=== PATIENT | female | born 1990 | race Caucasian/White ===

== ENCOUNTER 2016-10-24 22:11 | Emergency (ER) | payer OTHER ==
[2016-10-24] MEDS ORDERED: CEPHALEXIN 250 MG CAPSULE PO STA (22:50)
[2016-10-24] MEDS ORDERED: PHENAZOPYRIDINE 100 MG TABLET PO STA (22:50)
[2016-10-24] MEDS ORDERED: PHENAZOPYRIDINE 100 MG TABLET PO ONE (23:00)
[2016-10-24] MEDS ORDERED: CEPHALEXIN 250 MG CAPSULE PO ONE (23:00)
== END 2016-10-24 23:09 | disposition home or self-care (01) ==
DX: N39.0 Urinary tract infection, site not specified (principal); Z87.19 Personal history of other diseases of the digestive system
CPT/HCPCS: 81001; 81025; 87077; 87086; 87181; 99283; A9270

== ENCOUNTER 2016-12-11 13:52 | Emergency (ER) | payer OTHER | END 2016-12-11 17:29 | disposition home or self-care (01) | DX: O03.9 Complete or unspecified spontaneous abortion without complication (principal) ==

== ENCOUNTER 2016-12-22 12:13 | Outpatient (CLI) | payer OTHER | END 2016-12-22 12:14 | disposition home or self-care (01) | DX: M94.261 Chondromalacia, right knee (principal) ==

== ENCOUNTER 2019-04-19 18:53 | Outpatient (CLI) | payer OTHER ==
--- NOTE | 2019-04-20 01:26 | Ultrasound Report ---
Reason: TEST POSITIVE Procedure Date: 04/19/2019 Accession Number: [id number] / [id number] Procedure: US - OB First Trimester CPT Code: FULL RESULT: EXAM: FIRST TRIMESTER OBSTETRIC ULTRASOUND (Less than 11 weeks) EXAM DATE: 04/19/2019 07:03 PM. CLINICAL HISTORY: TEST POSITIVE. LMP: 02/13/2019. COMPARISONS: None. TECHNIQUE: Transabdominal and transvaginal ultrasound examination with static image documentation. CLINICAL DATES: EGA 9 weeks 2 days with STEVEN 11/20/2019 based on LMP. ASSESSMENT: Gestational Sac: Single intrauterine. Mean gestational sac diameter: 40 mm = 9 weeks 3 days. Embryo: CRL (crown-rump length) 23 mm = 9 weeks 0 days. Cardiac activity: 184 beats per minute. Yolk sac: 5 mm. Amniotic fluid: Not accurately assessed at this gestational age. Early placenta: Not visible at this gestational age. Other: No perigestational fluid collection demonstrated. MATERNAL STRUCTURES: Uterus: Anteverted. Unremarkable. Cervix: Closed. Right Ovary/Adnexa: The ovary measures 2.7 x 2.0 x 1.8 cm, volume 5.3 cc. Unremarkable. Left Ovary/Adnexa: The ovary measures 2.9 x 1.8 x 2.3 cm, volume 6.1 cc. Unremarkable. Free Fluid: None. Other: None. IMPRESSION: 1. Single viable intrauterine at EGA 9 weeks 0 days with STEVEN 11/22/2019 based on crown-rump length, which is concordant with clinical dates. 2. Assigned dating is STEVEN 11/20/2019 based on LMP. DEBBIE
== END 2019-04-19 18:54 | disposition home or self-care (01) ==
LOC: DI 18:53
PROVIDERS: ATTEND Obstetrics & Gynecology
DX: Z32.01 Encounter for pregnancy test, result positive (principal)
CPT/HCPCS: 76801; 76817

== ENCOUNTER 2019-04-21 14:05 | Outpatient (CLI) | payer OTHER ==
[2019-04-21 17:46] LABS: MUDS CUTOFF CONCENTRATIONS CUTOFF CONC BELOW:
[2019-04-21 18:34] LABS: BILIRUBIN,URINE NEGATIVE (NEGATIVE); GLUCOSE, URINE (UA) NEGATIVE (NEGATIVE); KETONES,URINE (UA) NEGATIVE (NEGATIVE); LEUKOCYTE ESTERASE, URINE NEGATIVE (NEGATIVE); NITRITE,URINE NEGATIVE (NEGATIVE); OCCULT BLOOD,URINE NEGATIVE (NEGATIVE); PH,URINE 6.5 PH (5.0-7.5); PROTEIN,URINE NEGATIVE (NEGATIVE); UROBILINOGEN,URINE 0.2 (NORMAL) E.U./dL (NORMAL)
[2019-04-21 18:51] LABS: BACTERIA,URINE None Seen /HPF (None Seen); CLARITY,URINE CLEAR (CLEAR); RBC,URINE None Seen /HPF (0-5); SQUAMOUS EPITHELIAL CELL,UR MOD Squamous (<= Few)
[2019-04-21 18:52] LABS: AMPHETAMINE SCREEN,URINE NEGATIVE (NEGATIVE); BENZODIAZEPINES SCREEN, URINE NEGATIVE (NEGATIVE); COCAINE SCREEN URINE NEGATIVE (NEGATIVE); METHADONE SCREEN, URINE NEGATIVE (NEGATIVE); METHAMPHETAMINES SCREEN, URINE NEGATIVE (NEGATIVE); OPIATE SCREEN, URINE NEGATIVE (NEGATIVE); OXYCODONE SCREEN, URINE NEGATIVE (NEGATIVE); PROPOXYPHENE SCREEN, URINE NEGATIVE (NEGATIVE); TRICYCLIC ANTIDEPRESSANT,URINE NEGATIVE (NEGATIVE)
[2019-04-21 22:46] LABS: TRICHOMONAS VAGINALIS DNA NEGATIVE (NEGATIVE)
== END 2019-04-21 23:59 | disposition home or self-care (01) ==
LOC: LAB.R 14:05
PROVIDERS: ATTEND Obstetrics & Gynecology
DX: Z36.89 Encounter for other specified antenatal screening (principal); Z12.4 Encounter for screening for malignant neoplasm of cervix; O09.91 Supervision of high risk pregnancy, unspecified, first trimester
CPT/HCPCS: 80306; 81001; 87086; 87491; 87591; 87661

== ENCOUNTER 2019-04-21 14:16 | Outpatient (CLI) | payer OTHER ==
[2019-04-21 14:47] LABS: BASOPHILS % (AUTO) 0.3 %; EOSINOPHILS # (AUTO) 0.1 10^3/uL (0.0-0.7); EOSINOPHILS % (AUTO) 1.3 %; HGB - HEMOGLOBIN 13.5 g/dL (12.0-16.0); LYMPHOCYTES # (AUTO) 1.9 10^3/uL (1.5-3.5); LYMPHOCYTES % (AUTO) 19.6 %; MEAN CORPUSCULAR HGB CONC 33.4 g/dL (32.0-36.0); MEAN CORPUSCULAR VOLUME 92.7 fL (81.0-99.0); MONOCYTES # (AUTO) 0.7 10^3/uL (0.0-1.0); MONOCYTES % (AUTO) 7.5 %; NEUTROPHILS # (AUTO) 6.7 10^3/uL (1.5-6.6); NEUTROPHILS % (AUTO) 70.9 %; PLT - PLATELET COUNT 253 10^3/uL (130-450); RED BLOOD COUNT 4.36 10^6/uL (4.20-5.40); RED CELL DISTRIBUTION WIDTH 12.3 % (12.0-15.0); WHITE BLOOD COUNT 9.4 x10^3/uL (4.8-10.8)
[2019-04-21 15:02] LABS: VBG PH 7.336 (7.31-7.41)
[2019-04-21 15:10] LABS: ALBUMIN/GLOBULIN RATIO 1.3 (1.0-2.2); BILIRUBIN,TOTAL 0.6 mg/dL (0.2-1.0); CALCIUM 9.2 mg/dL (8.5-10.3); CREATININE 0.6 mg/dL (0.4-1.0); TOTAL PROTEIN 7.2 g/dL (6.7-8.2)
[2019-04-21 15:25] LABS: FERRITIN 34.1 ng/mL (11.0-306.8)
[2019-04-22 11:37] LABS: HIV AG/AB 4TH GEN NON-REACTIVE (NON-REACTIVE)
[2019-04-22 12:41] LABS: HEPATITIS B SURFACE ANTIGEN NON-REACTIVE (NON-REACTIVE); HEPATITIS C ANTIBODY NON-REACTIVE (NON-REACTIVE)
== END 2019-04-21 14:17 | disposition home or self-care (01) ==
LOC: LAB 14:16
PROVIDERS: ATTEND Obstetrics & Gynecology
DX: Z36.89 Encounter for other specified antenatal screening (principal); O09.91 Supervision of high risk pregnancy, unspecified, first trimester; O99.619 Diseases of the digestive system complicating pregnancy, unspecified trimester; K90.0 Celiac disease; Z12.4 Encounter for screening for malignant neoplasm of cervix
CPT/HCPCS: 36415; 80053; 80306; 81001; 81599; 82306; 82330; 82607; 82728; 83540; 84466; 85025; 86592; 86762; 86803; 86850; 86900; 86901; 87340; 87389; 87491; 87591; 87661

== ENCOUNTER 2019-07-03 13:00 | Outpatient (CLI) | payer OTHER ==
--- NOTE | 2019-07-04 17:46 | Ultrasound Report ---
Reason: SCREENING ,OTHER SPECIFIED Procedure Date: 07/03/2019 Accession Number: [id number] / [id number] Procedure: US - OB Detailed Eval CPT Code: FULL RESULT: EXAM: COMPLETE OBSTETRICAL ULTRASOUND EXAM DATE: 07/03/2019 01:21 PM. CLINICAL HISTORY: anatomic survey. COMPARISON: OB FIRST TRIMESTER 04/19/2019 7:03 PM. TECHNIQUE: Real-time sonographic evaluation of the fetus performed by the supervisor data processing. Multiple software support representative static images were saved for review. DATING: Established EGA 19 weeks 5 days with STEVEN 11/22/2019 based on first ultrasound and physician stated. EGA 20 weeks 0 days with STEVEN 11/20/2019 based on LMP. EGA 20 weeks 0 days with STEVEN 11/20/2019 based on the current ultrasound. GENERAL EVALUATION [place] . Cardiac activity: 149 bpm. movement: Present Presentation: Variable Placenta: Posterior position. No evidence for previa. Umbilical cord: 3 vessel cord. Central placental cord origin. Amniotic fluid: Subjectively normal. MVP 4.5 cm. BIOMETRY Bi-Parietal Diameter (BPD): 4.6 cm, 20 weeks 0 days Head Circumference (HC): 16.8 cm, 19 weeks 3 days Abdominal Circumference (AC): 14.8 cm, 20 weeks 1 day Femur Length (FL): 3.3 cm, 20 weeks 3 days Estimated Weight: 334 g. ANATOMY The intracranial structures, face/nose/lips, spine, stomach, abdominal wall and cord insertion, diaphragm, kidneys, bladder, and extremities were visualized and demonstrate no abnormality. The profile/nasal bone, cardiac anatomy and outflow tracts are not well seen today. Suggest follow-up ultrasound in 2 weeks. MATERNAL STRUCTURES Uterus: Unremarkable. Cervix: Long and closed. Transabdominal length 4.6 cm. Right ovary/adnexa: Unremarkable. Left ovary/adnexa: Unremarkable. Free fluid: None. IMPRESSION: 1. Bay intrauterine with gestational age 19 weeks 5 days based on first ultrasound and physician stated. 2. Estimated weight is within expected limits for assigned dating. 3. The heart, outflow tracts, and profile are not seen today. Suggest follow-up ultrasound in 2-3 weeks. Otherwise normal anatomic survey. RADIA
== END 2019-07-03 13:01 | disposition home or self-care (01) ==
LOC: DI 13:00
PROVIDERS: ATTEND Obstetrics & Gynecology
DX: Z36.89 Encounter for other specified antenatal screening (principal)
CPT/HCPCS: 76811

== ENCOUNTER 2019-07-20 14:51 | Outpatient (CLI) | payer OTHER ==
--- NOTE | 2019-07-21 09:08 | Ultrasound Report ---
Reason: INCOMPLETE FAS, SUPER OF NORMAL Procedure Date: 07/20/2019 Accession Number: [id number] / [id number] Procedure: US - OB F/U or Repeat CPT Code: FULL RESULT: EXAM: FOLLOW-UP OBSTETRICAL ULTRASOUND EXAM DATE: 07/20/2019 04:17 PM. CLINICAL HISTORY: Incomplete survey on prior examination. COMPARISON: 07/03/2019. TECHNIQUE: Real-time sonographic evaluation of the fetus performed by the courier driver. Transabdominal imaging only. Multiple lead generation representative static images were saved for review. DATING: Established EGA 22 weeks 3 days with STEVEN 11/20/2019 based on LMP. EGA 22 weeks 1 day with STEVEN 11/22/2019 based on prior ultrasound. EGA 22 weeks 1 day with STEVEN 11/22/2019 based on physician provided. GENERAL EVALUATION [place] . Cardiac activity: 144 bpm. movement: Visualized. Presentation: Cephalic. Placenta: Posterior position. Amniotic fluid: Normal. BIOMETRY: Not repeated. Performed on 07/03/2019. ANATOMY Previously incomplete anatomy was completed today. The profile/nasal bone was again not seen because the face was down for the entire examination. RVOT and LVOT are visualized and are unremarkable. MATERNAL STRUCTURES Cervical canal length 3.9 cm. IMPRESSION: 1. Bay live intrauterine with gestational age 22 weeks 1 day based on previous ultrasound. 2. Incomplete elements of the anatomic evaluation were evaluated. The facial structures are again not visualized because the face was down. RVOT and LVOT are present and are unremarkable. 3. If clinically appropriate, consider follow-up examination.
== END 2019-07-20 14:52 | disposition home or self-care (01) ==
LOC: DI 14:51
PROVIDERS: ATTEND Obstetrics & Gynecology
DX: Z34.02 Encounter for supervision of normal first pregnancy, second trimester (principal)
CPT/HCPCS: 76816

== ENCOUNTER 2019-08-21 14:03 | Outpatient (CLI) | payer OTHER ==
--- NOTE | 2019-08-24 08:34 | Ultrasound Report ---
Reason: SUPER OF NORMAL 1ST , F/U TO FAS Procedure Date: 08/21/2019 Accession Number: [id number] / [id number] Procedure: US - OB F/U or Repeat CPT Code: Final Report FULL RESULT: EXAM: FOLLOW-UP OBSTETRICAL ULTRASOUND EXAM DATE: 08/21/2019 03:19 PM. CLINICAL HISTORY: SUPER OF NORMAL 1ST , F/U TO FAS. COMPARISON: None. TECHNIQUE: Real-time sonographic evaluation of the fetus performed by the architectural practice manager. Multiple business process representative static images were saved for review. DATING: Established EGA 26 weeks 5 days with STEVEN 11/22/2019 based on physician provided dating and previous ultrasound. GENERAL EVALUATION [place] . Cardiac activity: 150 bpm. movement: Visualized. Presentation: Cephalic. Placenta: Posterior position. Amniotic fluid: Normal. DAYAN 15.6 cm. MVP 5.3 cm. ANATOMY profile, nose lips are normal IMPRESSION: 1. Bay live intrauterine with gestational age 26 weeks 5 days based on assigned dating. 2. profile, nose lips are visualized and are normal RADIA
== END 2019-08-21 14:04 | disposition home or self-care (01) ==
LOC: DI 14:03
PROVIDERS: ATTEND Obstetrics & Gynecology
DX: Z34.02 Encounter for supervision of normal first pregnancy, second trimester (principal)
CPT/HCPCS: 76816

== ENCOUNTER 2019-10-21 15:43 | Outpatient (CLI) | payer OTHER ==
[2019-10-21 15:54] LABS: HGB - HEMOGLOBIN 11.7 g/dL (12.0-16.0); MEAN CORPUSCULAR HEMOGLOBIN 31.9 pg (27.0-31.0); MEAN CORPUSCULAR HGB CONC 33.4 g/dL (32.0-36.0); MEAN CORPUSCULAR VOLUME 95.4 fL (81.0-99.0); MEAN PLATELET VOLUME 9.8 fL (7.9-10.8); RED BLOOD COUNT 3.67 10^6/uL (4.20-5.40); RED CELL DISTRIBUTION WIDTH 13.8 % (12.0-15.0); WHITE BLOOD COUNT 10.5 x10^3/uL (4.8-10.8)
== END 2019-10-21 15:44 | disposition home or self-care (01) ==
LOC: LAB 15:43
PROVIDERS: ATTEND Obstetrics & Gynecology
DX: O99.019 Anemia complicating pregnancy, unspecified trimester (principal); Z3A.00 Weeks of gestation of pregnancy not specified
CPT/HCPCS: 36415; 85027

== ENCOUNTER 2019-11-03 08:00 | Outpatient (CLI) | payer OTHER ==
[2019-11-03 21:39] LABS: TRICHOMONAS VAGINALIS DNA NEGATIVE (NEGATIVE)
== END 2019-11-03 08:01 | disposition home or self-care (01) ==
LOC: LAB.R 08:00
PROVIDERS: ATTEND Obstetrics & Gynecology
DX: O09.70 Supervision of high risk pregnancy due to social problems, unspecified trimester (principal); Z3A.00 Weeks of gestation of pregnancy not specified
CPT/HCPCS: 87491; 87591; 87661; 87797

== ENCOUNTER 2019-11-22 03:05 | Inpatient (IN) | payer OTHER ==
[2019-11-22] MEDS ORDERED: SODIUM CHLORIDE FLUSH 0.9% 10 ML SYRINGE IVP PRN (06:06)
[2019-11-22 06:48] LABS: BASOPHILS % (AUTO) 0.3 %; EOSINOPHILS # (AUTO) 0.1 10^3/uL (0.0-0.7); EOSINOPHILS % (AUTO) 0.7 %; HGB - HEMOGLOBIN 13.2 g/dL (12.0-16.0); LYMPHOCYTES # (AUTO) 1.9 10^3/uL (1.5-3.5); LYMPHOCYTES % (AUTO) 12.8 %; MEAN CORPUSCULAR HGB CONC 33.9 g/dL (32.0-36.0); MEAN CORPUSCULAR VOLUME 94.4 fL (81.0-99.0); MEAN PLATELET VOLUME 10.2 fL (7.9-10.8); MONOCYTES % (AUTO) 6.6 %; NEUTROPHILS # (AUTO) 11.3 10^3/uL (1.5-6.6); NEUTROPHILS % (AUTO) 78.1 %; PLT - PLATELET COUNT 213 10^3/uL (130-450); RED BLOOD COUNT 4.12 10^6/uL (4.20-5.40); RED CELL DISTRIBUTION WIDTH 13.8 % (12.0-15.0); WHITE BLOOD COUNT 14.5 x10^3/uL (4.8-10.8)
[2019-11-22 08:15] LABS: RUPTURE OF MEMBRANES PLUS POSITIVE (NEGATIVE)
[2019-11-22] MEDS ORDERED: SODIUM CHLORIDE FLUSH 0.9% 10 ML SYRINGE IVP SCH (09:00)
--- NOTE | 2019-11-22 13:05 | HISTORY & PHYSICAL EXAMINATION ---
Admit History - : 2 Parity: 0 Care: positive: [facility] Risk/History: positive: Other (celiac disease/Rh negative) Complications This : positive: None Smoking Status: Never smoker - Mother's Labs Mother's Blood Type: positive: AB Mother's RH: positive: Negative GBS: positive: Group B Step Negative Rubella Status: positive: Immune - Other Maternal History Other Maternal History: Vertex by US AB neg/Rub imm Declines genetic testing FAS: 3VC. Posterior placenta. Anatomy cleared RHOGAM complete Glucola 98 HCT 32.3--> started on iron repletion TDaP completed 08/31/19 Influenza: declined HSV denies Breast pump Rx: provided GBS neg MOD: anticipate Patient was seen in clinic on 11/21/19 and membranes were stripped. She reported painful contractions that started overnight. She also reports a gush of fluid that passed earlier on 11/21/19, while at the store. She has continues to pass pink/red fluid. complicated by maternal celiac disease and Rh negative status. Meds/Allgy - Allergies Allergies/Adverse Reactions: Allergies Allergy/AdvReac Type Severity Reaction Status Date / Time gluten Allergy Severe Unknown Verified 10/24/16 22:17 Review of Systems - Other Findings Other Findings: As per HPI otherwise remaining systems are negative. Physical - Abdominal Exam Vital Signs: Temp Pulse Resp BP Pulse Ox 97.7 F 99 16 116/71 97 11/22/19 03:12 11/22/19 03:12 11/22/19 03:12 11/22/19 03:12 11/22/19 03:12 Contraction Frequency (min/apart): Q4 min Contraction Intensity: positive: Mild to moderate - Monitoring Heart Rate Baseline: 135 Strip Review: positive: Category I - Presentation Presentation: positive: Vertex - Vaginal Exam Membranes: positive: Membranes ruptured (ROM plus positive in setting of vaginal bleeding) Dilation (in cm): 4/50/-2 per RN exam Plan for Labor - Plan For Labor Plan for Labor: Admit for labor/SROM: LABOR: -Expectant management -Augment with pitocin as indicated FWB: vertex, Cat I tracing, well grown, GBS neg PAIN: Epidural as desired. FEN: gluten free diet Rh negative/ Rub imm Inpatient care
[2019-11-22] MEDS ORDERED: OXYTOCIN/DEXTROSE 5 % 30 UNIT/500 ML BAG IV ONE (15:56)
--- NOTE | 2019-11-22 16:01 | PROVIDER PROGRESS NOTE ---
Labor Progress Note - Uterine Monitoring Contraction Intensity: positive: Mild to moderate Uterine Resting Tone: positive: Soft - Monitoring Heart Rate Baseline: 135 Heart Rate Variability: positive: Moderate (6-25 bmp) Accelerations: positive: Present, 15x15 Decelerations: positive: None Strip Review: positive: Category I - Vaginal Exam Dilation (in cm): internal 2-3 cm external 4 Effacement (%): 80% Station: -1 Cervical Position: Midposition - Labor Progress Note Labor Progress Note/Additional Text: Pt has not shown adiquit labor Pattern dispite using nipple stimulation. she has wanted to go as noninterventional a possible. reviewed the need for progress adn consented to pitocin.
[2019-11-22] MEDS: LACTATED RINGERS 1,000 ML IV SCH (16:45)
[2019-11-22] MEDS ORDERED: OXYTOCIN/DEXTROSE 5 % 30 UNIT/500 ML BAG IV SCH (17:00)
[2019-11-22] MEDS: fentaNYL 100 MCG/2 ML VIAL IVP PRN ×2 (19:04→20:47)
[2019-11-22] MEDS ORDERED: ROPIVACAINE 0.2% 200 MG/100 ML BAG EP ONE (21:04)
[2019-11-22] MEDS ORDERED: LIDOCAINE-MPF 1% 30 ML VIAL ONE (21:04)
[2019-11-22] MEDS ORDERED: diphenhydrAMINE INJ 50 MG/ML VIAL IVP PRN (21:31)
[2019-11-22] MEDS ORDERED: METOCLOPRAMIDE 10 MG/2 ML VIAL IVP PRN (21:31)
[2019-11-22] MEDS ORDERED: ONDANSETRON 4 MG/2 ML VIAL IVP PRN (21:31)
[2019-11-22] MEDS ORDERED: NALOXONE 0.4 MG/ML VIAL IVP PRN (21:31)
[2019-11-22] MEDS ORDERED: ROPIVACAINE 0.2% 200 MG/100 ML BAG EP PRN (21:31)
[2019-11-22] MEDS ORDERED: NALBUPHINE 10 MG/ML AMP IVP PRN (21:31)
[2019-11-22] MEDS ORDERED: LACTATED RINGERS 500 ML IV ONE (21:31)
[2019-11-22] MEDS ORDERED: ePHEDrine 50 MG/ML VIAL IVP PRN (21:31)
--- NOTE | 2019-11-22 21:38 | ANESTHESIA ---
Pre-Anesthesia VS, & Labs - Diagnosis active labor - Procedure JAMES Vital Signs: Temp Pulse Resp BP Pulse Ox 36.5 C 99 16 116/71 97 11/22/19 03:12 11/22/19 03:12 11/22/19 03:12 11/22/19 03:12 11/22/19 03:12 Height 5 ft 6 in Weight (kg) 79.379 kg - Is Patient ?: Yes - Lab Results Current Lab Results: Laboratory Tests 11/22/19 06:30: WBC 14.5 H, RBC 4.12 L, Hgb 13.2, Hct 38.9, MCV 94.4, MCH 32.0 H , MCHC 33.9, RDW 13.8, Plt Count 213, MPV 10.2, Neut # (Auto) 11.3 H, Lymph # (Auto) 1.9, [place] # (Auto) 1.0, Eos # (Auto) 0.1, Baso # (Auto) 0.0, Absolute Nucleated RBC 0.00, Nucleated RBC % 0.0 Fish Bones: 11/22/19 06:30 Home Medications and Allergies Active Medications Diphenhydramine HCl (Benadryl Inj) 12.5 - 25 mg IVP Q6HR PRN PRN Reason: ITCHING Ephedrine Sulfate () 5 mg IVP Q5M PRN PRN Reason: For SBP<100;give until SBP>100 Fentanyl (Fentanyl) 50 mcg IVP Q2HR PRN PRN Reason: PAIN Last Admin: 11/22/19 20:47 Dose: 25 mcg Lactated Ringer's (Lr) 1,000 mls @ 150 mls/hr IV .Q6H40M CRISTINA Last Admin: 11/22/19 16:45 Dose: 150 mls/hr Oxytocin/Dextrose (Pitocin/Dextrose 5%) 30 unit in 500 mls @ 1 mls/hr IV TITR CRISTINA; Protocol Last Admin: 11/22/19 16:45 Dose: 2 milliunit/min, 2 mls/hr Lactated Ringer's (Lr) 500 mls @ 999 mls/hr IV ONCE ONE Stop: 11/22/19 22:01 Ropivacaine (Naropin 0.2%) 200 mg in 100 mls @ 0 mls/hr EP PRN PRN; Protocol PRN Reason: PAIN Metoclopramide HCl (Reglan Inj) 10 mg IVP Q6HR PRN PRN Reason: Nausea / Vomiting Nalbuphine HCl (Nubain) 2.5 - 5 mg IVP Q4H PRN PRN Reason: ITCHING Naloxone HCl (Narcan) 0.1 mg IVP Q2M PRN PRN Reason: RR<8 Ondansetron HCl (Zofran Inj) 4 mg IVP Q6HR PRN PRN Reason: Nausea / Vomiting Sodium Chloride (Normal Saline Flush 0.9%) 10 ml IVP PRN PRN PRN Reason: NEEDED PER PROVIDER ORDERS Sodium Chloride (Normal Saline Flush 0.9%) 10 ml IVP 0100,0900,1700 CRISTINA Last Admin: 11/22/19 16:45 Dose: 10 ml Allergies/Adverse Reactions: Allergies Allergy/AdvReac Type Severity Reaction Status Date / Time gluten Allergy Severe Unknown Verified 10/24/16 22:17 Anes History & Medical History - Anesthetic History Anesthesia Complications: reports: No previous complications Family history of Anesthesia Complications: Denies Family history of Malignant Hyperthermia: Denies - Medical History Cardiovascular: reports: None Pulmonary: reports: None Gastrointestinal: reports: None Urinary: reports: None Neuro: reports: None Musculoskeletal: reports: None Endocrine/Autoimmune: reports: None Blood Disorders: reports: None Skin: reports: None Smoking Status: Never smoker Psychosocial: reports: No issues indicated - Obstetrical History : 2 Parity: 0 Events: positive: Other (celiac disease/Rh negative) Complications: positive: None Exam General: Alert, Oriented x3, Cooperative, No acute distress Dental: WNL Mouth Openin Fingerbreadth Neck Mobility: Normal Mallampati classification: II Thyromental Distance: 4-6 cm Respiratory: Lungs clear, Normal breath sounds, No respiratory distress, No accessory muscle use Cardiovascular: Regular rate, Normal S1, Normal S2, No murmurs Abdomen: Normal bowel sounds, Soft, No tenderness, No hepatospenomegaly, No masses Extremities: No clubbing, No cyanosis, No edema, Normal pulses, No tenderness/swelling Neurological: Normal gait, Normal speech, Strength at 5/5 X4 ext, Normal tone, Sensation intact, Cranial nerves 3-12 NL, Reflexes 2+ Mental/Cognitive Status: Alert/Oriented X3, Normal for patient Cognitive Status: Within normal limits Plan Anesthesia Type: Epidural Consent for Procedure(s) Verified and Reviewed: Yes Code Status: Attempt Resuscitation ASA classification: 2-Mild systemic disease Is this case an emergency?: No
--- NOTE | 2019-11-22 21:49 | PROVIDER PROGRESS NOTE ---
Labor Progress Note - Uterine Monitoring Uterine Monitoring Mode: positive: External toco Contraction Frequency (min/apart): 2-3 Contraction Intensity: positive: Moderate to strong Uterine Resting Tone: positive: Soft - Monitoring Monitor Mode: positive: External ultrasound Heart Rate Baseline: 125 Heart Rate Variability: positive: Moderate (6-25 bmp) Accelerations: positive: Present, 15x15 Decelerations: positive: None Strip Review: positive: Category I - Vaginal Exam Dilation (in cm): 5 Effacement (%): 90 Station: 0 - Labor Progress Note Labor Progress Note/Additional Text: Pt just received an epidural. good pain control. progressing.
--- NOTE | 2019-11-23 01:20 | PROVIDER PROGRESS NOTE ---
Labor Progress Note - Uterine Monitoring Uterine Monitoring Mode: positive: External toco Contraction Frequency (min/apart): 1.5-3 Contraction Intensity: positive: Strong Uterine Resting Tone: positive: Soft - Monitoring Monitor Mode: positive: External ultrasound Heart Rate Baseline: 125 Heart Rate Variability: positive: Moderate (6-25 bmp) Accelerations: positive: Present, 15x15 Decelerations: positive: None Strip Review: positive: Category I - Vaginal Exam Dilation (in cm): 10 Effacement (%): 100 Station: 1 Cervical Position: Anterior - Labor Progress Note Labor Progress Note/Additional Text: forbag ruptured with clear fluid. excellent progress. Start pushing.
--- NOTE | 2019-11-23 03:23 | PROVIDER PROGRESS NOTE ---
Labor Progress Note - Uterine Monitoring Uterine Monitoring Mode: positive: External toco Contraction Frequency (min/apart): 2-3 Contraction Intensity: positive: Moderate to strong Uterine Resting Tone: positive: Soft - Monitoring Monitor Mode: positive: Spiral electrode (because maternal and heart rate were the same a FSE was placed) Accelerations: positive: Present, 15x15 Decelerations: positive: None Strip Review: positive: Category I - Vaginal Exam Dilation (in cm): 10 Effacement (%): 100 Station: 3 - Labor Progress Note Labor Progress Note/Additional Text: Pt C/O strong pressure. asked if pain abelardo. ROP position change
[2019-11-23] MEDS: LACTATED RINGERS 1,000 ML IV SCH (04:20)
[2019-11-23] MEDS ORDERED: LIDOCAINE-MPF 1% 30 ML VIAL ONE (04:46)
--- NOTE | 2019-11-23 05:41 | DELIVERY NOTE ---
Delivery Note - Labor Labor: positive: Induced by oxytocin - Delivery Method Delivery Method: positive: Vacuum assist - Presentation Presentation: positive: Vertex, JUDAH - right occiput anterior - Nuchal Cord Nuchal Cord: positive: None - Anesthetic Anesthetic Type: Anesthetic: positive: Lidocaine - 1% plain Volume: positive: Other (20) - Vacuum Use Indication for Vacuum Use: positive: Shortening of 2nd stage for maternal benefit (Maternal exaustion. Poor expulsitory effort) Type of Vacuum Cup: positive: Cup: Mushroom Type Vacuum Extraction: positive: Successful Number of pop-offs: 1 - Laceration Laceration: positive: 2nd degree, Labial, Periurethral, Vaginal - Suture Suture Type: positive: Vicryl Suture Size: positive: 3-0 - Delivery Outcome Delivery Outcome: positive: Livebirth - [place]: positive: Placed in direct skin contact with mother, Bulb syringe, Stimulated sex: positive: Male (Apgars 8/9, 8 lb 9oz) - Placenta Placenta: positive: Intact, Spontaneous - Estimated Blood Loss Estimated Blood Loss (in cc): 350 - Post Delivery Events Post Delivery Events: positive: No post delivery events - Delivery Comments (Free Text/Narrative) Delivery Comments (Free Text/Narrative): Pt had a reassuring tracing thruout labor. she reached complete at 0045 started pushing at about 0122. initialy had good organized pushing but with time and exhaustion became less effective. head determined to be ROP. Position changes used . Because of maternal exhaustion discussed options, continued pushing, rest, vacuum, C/Section. informed that would pull with only 3 contraction. Pt rallied and vacuum applied. first contraction vacuum poped off with one pull. with second contraction excellent progress to delivery. Minimal difficulty with shoulders. Delivered at 0449 live male infant JUDAH, Apgars 8/9, weight 8lb 9 oz. Midline vaginal laceration extending to the right labia. also left periuretheral laceration. placenta followed intact at 0454. repair with 3-0 vicril.
[2019-11-23] MEDS ORDERED: diphenhydrAMINE 25 MG CAPSULE PO PRN (05:57)
[2019-11-23] MEDS ORDERED: oxyCODONE 5 MG TABLET PO PRN (05:57)
[2019-11-23] MEDS ORDERED: ZOLPIDEM 5 MG TABLET PO PRN (05:57)
[2019-11-23] MEDS ORDERED: LACTATED RINGERS 1,000 ML IV SCH (06:00)
[2019-11-23] MEDS ORDERED: SIMETHICONE CHEW 80 MG TABLET PO SCH (06:00)
[2019-11-23] MEDS: IBUPROFEN 600 MG TABLET PO SCH ×3 (10:09→22:36)
[2019-11-23] MEDS: ACETAMINOPHEN 325 MG TABLET PO PRN ×2 (10:10→14:15)
[2019-11-23] MEDS: DOCUSATE SODIUM 100 MG CAPSULE PO SCH ×2 (10:10→22:36)
--- NOTE | 2019-11-23 12:46 | PROVIDER PROGRESS NOTE ---
Subjective - Prog Note Date Prog Note Date: 11/23/19 Prog Note Time: 12:44 - Subjective Pt reports feeling: Improved Subjective: Pt taking tylenol and motrin for pain learning to breast feed Objective - Vital Signs/Intake & Output Reviewed Vital Signs: Yes Vital Signs: Vital Signs x48h Temp Pulse Resp BP Pulse Ox 11/23/19 12:10 37.1 C 88 16 103/56 L 100 11/23/19 09:18 37.4 C 109 H 16 113/61 100 11/23/19 08:09 37.3 C 98 16 122/62 98 Intake & Output: Intake & Output 11/20/19 11/21/19 11/22/19 11/23/19 23:59 23:59 23:59 23:59 Intake Total 1300 Output Total 1 1250 Balance 1299 -1250 - Objective General Appearance: positive: No acute distress, Alert - Lab Results Fish Bones: 11/22/19 06:30 Assessment/Plan - Problem List (1) Vacuum extractor delivery, delivered Impression: recovering well Pain 3-410. breast feeding (2) Maternal exhaustion, delivered, current hospitalization Impression: pt encouraged to sleep when possible
[2019-11-24] MEDS: IBUPROFEN 600 MG TABLET PO SCH ×2 (12:00→19:18)
[2019-11-24] MEDS: DOCUSATE SODIUM 100 MG CAPSULE PO SCH (12:00)
[2019-11-24] MEDS: ACETAMINOPHEN 325 MG TABLET PO PRN ×2 (12:00→19:17)
--- NOTE | 2019-11-24 16:37 | PROVIDER PROGRESS NOTE ---
Subjective - Prog Note Date Prog Note Date: 11/24/19 Prog Note Time: 16:34 - Subjective Subjective: Had stopped by to see patient several times this morning but she had been sleeping She reports feeling well now. Has some soreness related to delivery. Taking ibuprofen. Voiding. Minimal lochia. Tolerating po and ambulating. Objective - Vital Signs/Intake & Output Vital Signs: Vital Signs x48h Temp Pulse Resp BP Pulse Ox 11/24/19 16:19 98.1 F 76 17 109/60 100 11/24/19 10:00 98.1 F 73 16 97/57 L 100 Intake & Output: Intake & Output 11/21/19 11/22/19 11/23/19 11/24/19 23:59 23:59 23:59 23:59 Intake Total 1300 Output Total 1 1250 Balance 1299 -1250 - Objective General Appearance: positive: No acute distress Neck: positive: Nml inspection Respiratory: positive: No respiratory distress, Breath sounds nml Cardiovascular: positive: Regular rate & rhythm Abdomen: positive: Non-tender, Other (FF below umbilicus) Skin: positive: Color nml Extremities: positive: Non-tender, No pedal edema Neurologic/Psychiatric: positive: Oriented x3 - Lab Results Fish Bones: 11/22/19 06:30 Assessment/Plan - Problem List (1) Vacuum extractor delivery, delivered Impression: PPD#2 s/p VAVD Patient is doing well. Remained in-patinet for support but thinks she would like a pm d ischarge to boarding Warning signs were reviewed and routine discharge instructions given Discharge medications were sent to pharmacy via electronic Rx Discharge to boarding this pm. Mother RH negative Baby A neg
[2019-11-24 19:17] VITALS: BP 104/57
--- NOTE | 2019-12-04 21:16 | DISCHARGE SUMMARY ---
"Discharge Summary Admit Date: 11/22/19 Discharge Date: 11/24/19 Discharging Provider: Torsten Condition at Discharge: Good Discharge Disposition: 01 Home, Self Care Discharge [facility] Name: [facility] - DIAGNOSES Admission Diagnoses: IUP at 40+0 wga Labor Spontaneous rupture of membranes Discharge Diagnoses with Status of Each Condition: Same and delivery of term gestation via vacuum assistance - HPI History of Present Illness: Patient is a 29 yo at 40+0 wga who presented with painful contractions and possible loss of fluid per vagina. She was was seen in clinic on 11/21/19 and membranes were stripped. She reported painful contractions that started overnight. She also reports a gush of fluid that passed earlier on 11/21/19, while at the store. She continued to pass pink/red fluid. ROM+ testing was positive. complicated by maternal celiac disease and Rh negative status. - CONSULTS | PROCEDURES Procedures: Vacuum assisted vaginal delivery - HOSPITAL COURSE Hospital Course: Patient was admitted on 11/22/19 in early labor and likely rupture of membranes. Proceeded with expectant management. After failure to progress, pitocin augmentation was initiated. GBS negative; antibiotics were not indicated. Epidural for pain management. Complete dilation at 0045 on 11/23/2019; started pushing at about 0122. Pushed for more than 3 hours and became exhausted. head determined to be ROP. Position changes used. Because of maternal exhaustion, options were reviewed. These included continued pushing, rest, vacuum, C/Section. Patient opted for vacuum assistance. One popoff prior to delivery. Minimal difficulty with shoulders. Delivered at 0449 live male infant JUDAH, Apgars 8/9, weight 8lb 9 oz. Midline vaginal laceration extending to the right labia as well as left periuretheral laceration. Repaired with 3-0 Vicryl. Placenta followed intact at 0454. course was uncomplicated. Remained inpatient for support; mother discharged to boarding during evening of 11/24/2019 with infant discharged 11/25/2019. Mother Rh negative; Baby A neg. Rhogam was not given. - ALLERGIES Allergies/Adverse Reactions: Allergies Allergy/AdvReac Type Severity Reaction Status Date / Time gluten Allergy Severe Unknown Verified 10/24/16 22:17 - LABS Result Diagrams: 11/22/19 06:30 - FOLLOW UP Follow Up: [address] Sarmiento - TIME SPENT Time Spent in Discharge (Minutes): 45"
== END 2019-11-24 19:40 | disposition home or self-care (01) | DRG 807 ==
LOC: WFO 03:05 → FBP 03:09 → WFO 06:05 → FBP 06:06
PROVIDERS: ADMIT Obstetrics & Gynecology; ATTEND Obstetrics & Gynecology
PROC: 10D07Z6 Extraction of Products of Conception, Vacuum, Via Natural or Artificial Opening (ICD-10-PCS; principal; 2019-11-23)
PROC: 0KQM0ZZ Repair Perineum Muscle, Open Approach (ICD-10-PCS; 2019-11-23)
PROC: 0UQMXZZ Repair Vulva, External Approach (ICD-10-PCS; 2019-11-23)
DX: O99.62 Diseases of the digestive system complicating childbirth (principal); Z37.0 Single live birth; K90.0 Celiac disease; K86.81 Exocrine pancreatic insufficiency; O62.0 Primary inadequate contractions; O75.81 Maternal exhaustion complicating labor and delivery; O70.1 Second degree perineal laceration during delivery; O71.82 Other specified trauma to perineum and vulva; O75.89 Other specified complications of labor and delivery; Z67.31 Type AB blood, Rh negative; Z3A.40 40 weeks gestation of pregnancy
CPT/HCPCS: 84112; 85025; 99213; A9270; J7120

== ENCOUNTER 2020-10-08 16:37 | Outpatient (CLI) | payer OTHER | END 2020-10-08 16:38 | disposition home or self-care (01) | LOC: COV 16:37 | PROVIDERS: ATTEND Family Medicine | DX: M79.10 Myalgia, unspecified site (principal); R53.83 Other fatigue; R09.81 Nasal congestion; J34.89 Other specified disorders of nose and nasal sinuses; Z20.828 Contact with and (suspected) exposure to other viral communicable diseases ==

== ENCOUNTER 2021-12-18 15:17 | Outpatient (CLI) | payer OTHER ==
--- NOTE | 2021-12-18 18:08 | DEXA Report ---
PROCEDURE: Dexa Spine and/or Hip INDICATIONS: CELIAC, DISEASE BASELINE ASSESSMENT TECHNIQUE: Dual energy x-ray absorptiometry (DXA) was performed on a [employer] System. Regions measur ed are the AP Spine, femoral neck, and if needed forearm. COMPARISON: None. FINDINGS: Lumbar Spine: Bone Mineral Density 1.260 g/cm/cm,T score 0.7, normal bone density Left Hip: Bone Mineral Density 1.050 g/cm/cm,T score 0.3, normal bone density Left Femoral Neck: Bone Mineral Density 1.001 g/cm/cm, T score -0.3, normal bone density (T score greater or equal to -1.0: NORMAL) (T score from -1.1 to -2.4: OSTEOPENIA) (T score less than or equal to -2.5 to: OSTEOPOROSIS) Impression: Normal bone mineral density. Patients with diagnosis of osteoporosis or osteopenia should have regular bone mineral density assess ment. For those eligible for Medicare, routine testing is allowed once every 2 years. Testing frequ ency can be increased for patients who have rapidly progressing disease or for those who are receivin g medical therapy to restore bone mass. Reviewed by: Baldev Ward MD on 12/18/2021 5:07 PM KRYSTINA Approved by: Baldev Ward MD on 12/18/2021 5:07 PM [facility] Station ID: [id number]
== END 2021-12-18 15:18 | disposition home or self-care (01) ==
LOC: DI 15:17
PROVIDERS: ATTEND Obstetrics & Gynecology
DX: K90.0 Celiac disease (principal)

== ENCOUNTER 2023-07-29 08:00 | Outpatient (CLI) | payer OTHER ==
[2023-07-30 11:21] LABS: BILIRUBIN,URINE NEGATIVE (NEGATIVE); GLUCOSE, URINE (UA) NEGATIVE (NEGATIVE); KETONES,URINE (UA) NEGATIVE (NEGATIVE); LEUKOCYTE ESTERASE, URINE NEGATIVE (NEGATIVE); NITRITE,URINE NEGATIVE (NEGATIVE); OCCULT BLOOD,URINE NEGATIVE (NEGATIVE); PH,URINE 6.5 PH (5.0-7.5); PROTEIN,URINE NEGATIVE (NEGATIVE); UROBILINOGEN,URINE 0.2 (NORMAL) E.U./dL (NORMAL)
[2023-07-30 11:27] LABS: BACTERIA,URINE Rare /HPF (None Seen); CLARITY,URINE CLEAR (CLEAR); RBC,URINE None Seen /HPF (0-5); SQUAMOUS EPITHELIAL CELL,UR MOD Squamous (<= Few); WBC,URINE 0-3 /HPF (0-5)
== END 2023-07-29 23:59 | disposition home or self-care (01) ==
LOC: LAB.WC 08:00
PROVIDERS: ATTEND Obstetrics & Gynecology
DX: Z34.90 Encounter for supervision of normal pregnancy, unspecified, unspecified trimester (principal)
CPT/HCPCS: 81001; 87086

== ENCOUNTER 2023-08-07 15:51 | Outpatient (CLI) | payer OTHER ==
--- NOTE | 2023-08-07 16:48 | Ultrasound Report ---
PROCEDURE: OB First Trimester w/TV INDICATIONS: POSITIVE TEST OUTSIDE/PRIOR DATING DATA: Last menstrual period (LMP): 06/11/23 LMP-based estimated date of delivery (STEVEN): 03/17/23. First dating scan (date and location): 08/07/23. Estimated date of delivery (STEVEN) from first dating scan: 03/16/24. TECHNIQUE: Real-time scanning was performed of the fetus and maternal pelvic organs, with image documentation. Endovaginal scanning was also performed to better visualize the fetus and maternal ovaries. COMPARISON: None. FINDINGS: Intrauterine gestational sac present. Embryo: Single live intrauterine with crown rump length measuring 1.8 cm, measuring 8 wee ks 2 days.. Heart rate: 160 bpm. Other: 6 mm perigestational hemorrhage. Measurement variability in dating: +/- 4 weeks by LMP, +/- 7 days by mean sac diameter (use before 6 weeks gestation if crown-rump length not able to be measured), +/- 5 days by crown-rump length (6-12 weeks gestation). Maternal organs: Ovaries appear within normal limits. IMPRESSION: Single live intrauterine with crown rump length measuring 1.8 cm, measuring 8 weeks 2 days .. 6 mm perigestational hemorrhage. Reviewed by: Madison Espitia MD on 08/07/2023 4:47 PM PDT Approved by: Madison Espitia MD on 08/07/2023 4:47 PM PDT Station ID: [id number]
[2023-08-07 16:49] LABS: BASOPHILS % (AUTO) 0.4 %; EOSINOPHILS # (AUTO) 0.2 10^3/uL (0.0-0.7); HCT - HEMATOCRIT 39.6 % (37.0-47.0); HGB - HEMOGLOBIN 13.1 g/dL (12.0-16.0); LYMPHOCYTES # (AUTO) 2.3 10^3/uL (1.5-3.5); LYMPHOCYTES % (AUTO) 20.2 %; MEAN CORPUSCULAR HEMOGLOBIN 30.1 pg (27.0-31.0); MEAN CORPUSCULAR HGB CONC 33.1 g/dL (32.0-36.0); MEAN PLATELET VOLUME 9.4 fL (7.9-10.8); MONOCYTES # (AUTO) 0.9 10^3/uL (0.0-1.0); MONOCYTES % (AUTO) 7.9 %; NEUTROPHILS # (AUTO) 7.8 10^3/uL (1.5-6.6); NEUTROPHILS % (AUTO) 69.1 %; PLT - PLATELET COUNT 265 10^3/uL (130-450); RED BLOOD COUNT 4.35 10^6/uL (4.20-5.40); WHITE BLOOD COUNT 11.2 x10^3/uL (4.8-10.8)
[2023-08-07 17:03] LABS: BILIRUBIN,URINE NEGATIVE (NEGATIVE); GLUCOSE, URINE (UA) NEGATIVE (NEGATIVE); KETONES,URINE (UA) NEGATIVE (NEGATIVE); LEUKOCYTE ESTERASE, URINE NEGATIVE (NEGATIVE); NITRITE,URINE NEGATIVE (NEGATIVE); OCCULT BLOOD,URINE NEGATIVE (NEGATIVE); PH,URINE 5.5 PH (5.0-7.5); PROTEIN,URINE NEGATIVE (NEGATIVE); UROBILINOGEN,URINE 0.2 (NORMAL) E.U./dL (NORMAL)
[2023-08-07 17:25] LABS: CLARITY,URINE CLEAR (CLEAR)
[2023-08-07 17:33] LABS: BACTERIA,URINE None Seen /HPF (None Seen); RBC,URINE 0-5 /HPF (0-5); SQUAMOUS EPITHELIAL CELL,UR NONE SEEN (<= Few); WBC,URINE 0-3 /HPF (0-5)
[2023-08-09 07:08] LABS: HBsAG SCREEN Negative (Negative)
[2023-08-09 08:09] LABS: HCV AB Non Reactive (Non Reactive)
[2023-08-09 09:08] LABS: HIV SCREEN 4TH GENERATION Non Reactive (Non Reactive)
[2023-08-09 13:10] LABS: VARICELLA-ZOSTER AB IGG 1545 index (Immune >165)
[2023-08-10 02:07] LABS: RPR Non Reactive (Non Reactive)
== END 2023-08-07 15:52 | disposition home or self-care (01) ==
LOC: DI 15:51
PROVIDERS: ATTEND Obstetrics & Gynecology
DX: O20.8 Other hemorrhage in early pregnancy (principal); Z3A.08 8 weeks gestation of pregnancy
CPT/HCPCS: 36415; 81001; 85025; 86592; 86762; 86787; 86803; 86850; 86900; 86901; 87086; 87340; 87389

== ENCOUNTER 2023-08-30 08:00 | Outpatient (CLI) | payer OTHER ==
[2023-08-30 20:20] LABS: CHLAMYDIA TRACHOMATIS DNA NEGATIVE (NEGATIVE); NEISSERIA GONORRHOEAE DNA NEGATIVE (NEGATIVE); TRICHOMONAS VAGINALIS DNA NEGATIVE (NEGATIVE)
== END 2023-08-30 23:59 | disposition home or self-care (01) ==
LOC: LAB.WC 08:00
PROVIDERS: ATTEND Obstetrics & Gynecology
DX: Z11.3 Encounter for screening for infections with a predominantly sexual mode of transmission (principal)
CPT/HCPCS: 87491; 87591; 87661

== ENCOUNTER 2023-09-08 15:38 | Emergency (ER) | payer OTHER ==
[2023-09-08 15:54] VITALS: O2SAT 98
--- NOTE | 2023-09-08 16:04 | ED Physician Documentation ---
PD HPI URI - Stated complaint Stated Complaint: CHEST PX - Chief complaint Chief Complaint: Resp - History obtained from History obtained from: Patient - History of Present Illness Timing duration: Days (3) Timing details: Gradual onset, Still present Associated symptoms: Fever, Chills, Nasal congestion, Dry cough, Dyspnea, NVD (nausea with emesis once. No diarrhear.) Contributing factors: Other (12 weeks .). No: Sick contact, Immunocompromised Similar symptoms before: Has not had sx before (has had related nausea without vomiting for a monht, without improvement from Reglan nor doxylamine med. Has not had Zofran.) PD PAST MEDICAL HISTORY - Past Medical History Cardiovascular: None Respiratory: None Neuro: None Endocrine/Autoimmune: None GI: None : None Musculoskeletal: None Derm: None - Past Surgical History Past Surgical History: No - Present Medications Home Medications: Ambulatory Orders Medication Instructions Recorded Confirmed Albuterol Sulf [Ventolin Hfa 2 puffs INH QID #1 each 09/08/23 Inhaler] Ondansetron Odt [Zofran] 4 mg TL Q6H PRN #20 tablet 09/08/23 dexAMETHasone [Decadron] 4 mg PO DAILY #5 tablet 09/08/23 - Allergies Allergies/Adverse Reactions: Allergies Allergy/AdvReac Type Severity Reaction Status Date / Time gluten Allergy Severe Unknown Verified 10/24/16 22:17 - Social History Does the pt smoke?: No Smoking Status: Never smoker Does the pt drink ETOH?: No Does the pt have substance abuse?: No - Immunizations Immunizations are current?: Yes - POLST Patient has POLST: No Results - Vitals Vitals: Vital Signs - 24 hr 09/08/23 09/08/23 15:43 16:39 Temperature 36.5 C Heart Rate 120 H 102 H Respiratory 20 18 Rate Blood Pressure 112/69 99/61 O2 Saturation 98 98 Oxygen O2 Source Room air - EKG (time done) 15:50 EKG releavant findings:: EKG personally interpreted by author of this note. Relevant findings are: Rate: Rate (enter#) (109) Rhythm: Sinus tachycardia (109) [place]: Normal Intervals: Normal SD QRS: Normal Ischemia: No: ST elevation c/w ischemia, ST depression - Labs Labs: Laboratory Tests 09/08/23 15:51 Nasal Adenovirus (PCR) NOT DETECTED Nasal B. parapertussis DNA (PCR) NOT DETECTED Nasal Coronavir 229E PCR NOT DETECTED Nasal Coronavir HKU1 PCR NOT DETECTED Nasal Coronavir NL63 PCR NOT DETECTED Nasal Coronavir OC43 PCR NOT DETECTED Nasal Enterovir/Rhinovir PCR NOT DETECTED Nasal Influenza B PCR NOT DETECTED Nasal Influenza A PCR NOT DETECTED Nasal Parainfluen 1 PCR NOT DETECTED Nasal Parainfluen 2 PCR NOT DETECTED Nasal Parainfluen 3 PCR NOT DETECTED Nasal Parainfluen 4 PCR NOT DETECTED Nasal RSV (PCR) NOT DETECTED Nasal B.pertussis DNA PCR NOT DETECTED Nasal C.pneumoniae (PCR) NOT DETECTED [place] Human Metapneumo PCR NOT DETECTED Nasal M.pneumoniae (PCR) NOT DETECTED Nasal SARS-CoV-2 (PCR) DETECTED A PD Medical Decision Making - ED course Complexity details: reviewed results (ECG showing sinus mild tachy. Lungs are clear and amanda are good, with some central bronchial wheezing mildly. Shared decision to defer CXR as low yield. ), re-evaluated patient (she is feeling improved breathing and cough with albuterol MDI. Given Decadron to help with cough breathing wheezing, but also will help with nausea (is recommended from ACOG for related vomiting exacerbation). ), considered differential (seems likely viral URI with cough, wheezing and nausea ( nausea already at baseline augmented from current illness)), d/w patient, d/w research consultant (talked with Dr. García gas distribution and emergency clerk, who did advocate Paxlovid course. ) Reviewed Lab Results: viral PCR positive for COVID. Departure - Departure Disposition: 01 Home, Self Care Clinical Impression: Acute dyspnea, COVID-19, Nausea Upper respiratory infection Qualifiers: URI type: unspecified URI Qualified Code(s): J06.9 - Acute upper respiratory infection, unspecified Qualifiers: Weeks of gestation: 12 weeks Qualified Code(s): Z3A.12 - 12 weeks gestation of Condition: Stable Record reviewed to determine appropriate education?: Yes Follow-Up: [facility] [Provider Group] Chris Anderson MD [Primary Care Provider] - Prescriptions: dexAMETHasone [Decadron] 4 mg PO DAILY #5 tablet Albuterol Sulf [Ventolin Hfa Inhaler] 2 puffs INH QID #1 each Ondansetron Odt [Zofran] 4 mg TL Q6H PRN #20 tablet PRN Reason: Nausea / Vomiting Comments: Your viral respiratory panel was positive for COVID. Stay well-hydrated. We can treat the symptoms with trying to help with reduce cough and improve breathing. Albuterol inhaler 2 puffs 4 times a day for the next several days to week and extra times if needed. Ondansetron/Zofran every 6 hours if needed for nausea. To help with the nausea and also with the cough and breathing, dexamethasone steroid daily for 5 more days. This is suggested treatment in the related nausea in the short-term. Zofran is acceptable as well and he typically nonsedating. Tylenol 500 650 mg 4 times daily to help with pains. Up to 20 weeks gestation you can use ibuprofen or naproxen as well. I sent your scripts to your preferred pharmacy. I talked with Dr. García who is on-call and Paxlovid antiviral combination is suggested in . We provided the kit for you. Forms: PCP List Discharge Date/Time: 09/08/23 18:12
[2023-09-08] MEDS ORDERED: ACETAMINOPHEN 325 MG TABLET PO STA (16:38)
[2023-09-08] MEDS ORDERED: ONDANSETRON ODT 4 MG TABLET TL STA (16:38)
[2023-09-08] MEDS ORDERED: ALBUTEROL 1 PUFF INH STA (16:38)
[2023-09-08] MEDS ORDERED: dexAMETHasone 4 MG TABLET PO STA (16:38)
[2023-09-08 16:40] VITALS: BP 99/61
[2023-09-08 16:58] LABS: CORONAVIRUS 229E-RESP PCR NOT DETECTED; CORONAVIRUS HKU1-RESP PCR NOT DETECTED; CORONAVIRUS NL63-RESP PCR NOT DETECTED; CORONAVIRUS OC43-RESP PCR NOT DETECTED
[2023-09-08 17:00] LABS: HUMAN METAPNEUMOVIRUS NOT DETECTED; INFLUENZA A- RESP PCR PANEL NOT DETECTED; RHINOVIRUS/ENTEROVIRUS NOT DETECTED; SARS-CoV-2 -RESP PCR PANEL DETECTED
[2023-09-08 17:01] LABS: B. PARAPERTUSSIS- RESP PCR PAN NOT DETECTED; B. PERTUSSIS- RESP PCR PANEL NOT DETECTED; C. PNEUMONIAE- RESP PCR PANEL NOT DETECTED; INFLUENZA B - RESP PCR PANEL NOT DETECTED; M. PNEUMONIAE- RESP PCR PANEL NOT DETECTED; PARAINFLUENZA VIRUS 1 NOT DETECTED; PARAINFLUENZA VIRUS 2 NOT DETECTED; PARAINFLUENZA VIRUS 3 NOT DETECTED; PARAINFLUENZA VIRUS 4 NOT DETECTED; RSV- RESP PCR PANEL NOT DETECTED
[2023-09-08] MEDS ORDERED: NIRMATRELVIR/RITONAVIR PREPACK PO STA (17:40)
== END 2023-09-08 18:12 | disposition home or self-care (01) ==
LOC: ED 15:38
DX: O98.511 Other viral diseases complicating pregnancy, first trimester (principal); U07.1 COVID-19; O99.511 Diseases of the respiratory system complicating pregnancy, first trimester; J98.8 Other specified respiratory disorders; O99.891 Other specified diseases and conditions complicating pregnancy; R11.0 Nausea; Z3A.12 12 weeks gestation of pregnancy
CPT/HCPCS: 87633; 93005; 94640; 94664; 99283; 99284; A9270; J3490; J8540; Q0162

== ENCOUNTER 2023-11-05 13:59 | Outpatient (CLI) | payer OTHER ==
--- NOTE | 2023-11-08 18:55 | Ultrasound Report ---
PROCEDURE: OB Anatomy Scan INDICATIONS: SUPERVISION OF OUTSIDE/PRIOR DATING DATA: Last menstrual period (LMP): 06/11/2023. LMP-based estimated date of delivery (STEVEN): 03/17/2024. First dating scan (date and location): 08/07/2023, [place]. Estimated date of delivery (STEVEN) from first dating scan: 03/16/2024. The below data below was generated using the ultrasound STEVEN of 03/16/2024 TECHNIQUE: Real-time scanning was performed of the fetus, with image documentation and biometric measurements. Endovaginal scanning: Not performed. COMPARISON: None. FINDINGS: General: A single living intrauterine gestation is present. Presentation: Variable Placenta: Placental position is posterior, without previa. Amniotic fluid index: 9.2 cm, within normal limits for gestational age. heart rate: 135 beats per minute. Maternal cervical canal: 4.4 cm long; normal length is 2.5 cm or more. biometrics: Biparietal diameter: 4.8 cm, 20 weeks and 4 days Head circumference: 18.6 cm, 20 weeks and 3 days Abdominal circumference: 16.7 cm, 21 weeks and 6 days Femur length: 3.5 cm, 21 weeks and 6 days Estimated gestational age from initial scan: 21 weeks and 1 day Composite gestational age from present scan: 20 weeks and 5 days Estimated weight and percentile: 412.9 g, 52.6% Measurement variability in biometric dating: +/- 10 days from 12-20 weeks gestation, +/- 2 weeks from 20-30 weeks gestation, +/- 3 weeks at 30 weeks gestation or later. Anatomic survey: Neuro: Ventricles are normal at less than 10 mm. Cisterna magna is normal at 3-11 mm. Cerebellum i s normal in size and morphology. Nuchal skin fold: Normal at less than 6 mm between 14 and 20 weeks gestational age. Face: Nose and lips, facial profile are normal. Spine: No evidence for spina bifida. Heart: 4-chambered heart is present, with normal ventricular outflow tracts. Diaphragm: Diaphragm is intact. Stomach: Left-sided stomach is present. Kidneys: No hydronephrosis. Normal is less than 5 mm in 2nd trimester, less than 7 mm in 3rd trimester. Cord: 3 vessel cord has orthotopic insertion. Bladder: Normal in size. Extremities: All 4 extremities are visualized. IMPRESSION: 1.Single living intrauterine gestation in variable presentation. 2.Anatomic survey is within normal limits. Reviewed by: Terri Garcia MD on 11/08/2023 6:54 PM PST Approved by: Terri Garcia MD on 11/08/2023 6:54 PM PST Station ID: [id number]
== END 2023-11-05 14:00 | disposition home or self-care (01) ==
LOC: DI 13:59
PROVIDERS: ATTEND Nurse Practitioner
DX: Z34.92 Encounter for supervision of normal pregnancy, unspecified, second trimester (principal)

== ENCOUNTER 2023-12-29 13:23 | Outpatient (CLI) | payer OTHER ==
[2023-12-29 14:35] LABS: HCT - HEMATOCRIT 34.8 % (37.0-47.0); HGB - HEMOGLOBIN 11.6 g/dL (12.0-16.0); MEAN CORPUSCULAR HEMOGLOBIN 32.3 pg (27.0-31.0); MEAN CORPUSCULAR HGB CONC 33.3 g/dL (32.0-36.0); MEAN CORPUSCULAR VOLUME 96.9 fL (81.0-99.0); RED BLOOD COUNT 3.59 10^6/uL (4.20-5.40); RED CELL DISTRIBUTION WIDTH 12.7 % (12.0-15.0); WHITE BLOOD COUNT 9.8 x10^3/uL (4.8-10.8)
== END 2023-12-29 13:24 | disposition home or self-care (01) ==
LOC: LAB 13:23
PROVIDERS: ATTEND Obstetrics & Gynecology
DX: Z34.90 Encounter for supervision of normal pregnancy, unspecified, unspecified trimester (principal); Z36.89 Encounter for other specified antenatal screening; Z67.91 Unspecified blood type, Rh negative
CPT/HCPCS: 36415; 82950; 85027; 86850

== ENCOUNTER 2024-01-07 13:20 | Outpatient (CLI) | payer OTHER | END 2024-01-07 13:21 | disposition home or self-care (01) | LOC: LAB 13:20 | PROVIDERS: ATTEND Nurse Practitioner | DX: O99.810 Abnormal glucose complicating pregnancy (principal) | CPT/HCPCS: 36415; 82950 ==

== ENCOUNTER 2024-02-17 08:00 | Outpatient (CLI) | payer OTHER | END 2024-02-17 23:59 | disposition home or self-care (01) | LOC: LAB.WC 08:00 | PROVIDERS: ATTEND Obstetrics & Gynecology | DX: Z36.85 Encounter for antenatal screening for Streptococcus B (principal) | CPT/HCPCS: 87797 ==

== ENCOUNTER 2024-03-20 08:07 | Inpatient (IN) | payer OTHER ==
[2024-03-20] MEDS ORDERED: miSOPROStoL 200 MCG TABLET PR PRN (09:01)
[2024-03-20] MEDS ORDERED: ONDANSETRON ODT 4 MG TABLET TL PRN (09:01)
[2024-03-20] MEDS ORDERED: TRANEXAMIC ACID IN NACL 1,000 MG/100 ML BAG IV PRN (09:01)
[2024-03-20] MEDS ORDERED: LACTATED RINGERS 1,000 ML IV PRN (09:01)
[2024-03-20] MEDS ORDERED: OXYTOCIN 10 UNIT/ML VIAL IM PRN (09:01)
[2024-03-20] MEDS ORDERED: hydrALAZINE INJ 20 MG/ML VIAL IVP PRN ×2 (09:01)
[2024-03-20] MEDS ORDERED: lidocaine 1% 20 ML MDV ID PRN (09:01)
[2024-03-20] MEDS ORDERED: miSOPROStoL 200 MCG TABLET BC PRN (09:01)
[2024-03-20] MEDS ORDERED: SODIUM CHLORIDE FLUSH 0.9% 10 ML SYRINGE IVP PRN (09:01)
[2024-03-20] MEDS ORDERED: ACETAMINOPHEN 500 MG TABLET PO PRN (09:01)
[2024-03-20] MEDS ORDERED: fentaNYL 100 MCG/2 ML VIAL IVP PRN (09:01)
[2024-03-20] MEDS ORDERED: LABETALOL 20 MG/4 ML SYRINGE IVP PRN ×3 (09:01)
[2024-03-20] MEDS ORDERED: TERBUTALINE 1 MG/ML VIAL SUBQ PRN (09:01)
[2024-03-20] MEDS ORDERED: OXYTOCIN/SODIUM CHLORIDE 500 ML IV PRN (09:01)
[2024-03-20] MEDS ORDERED: NIFEdipine 10 MG CAPSULE PO PRN (09:01)
[2024-03-20] MEDS ORDERED: METHYLERGONOVINE 0.2 MG/ML VIAL IM PRN (09:01)
--- NOTE | 2024-03-20 09:01 | HISTORY & PHYSICAL EXAMINATION ---
Admit History - Smoking Status: Never smoker - Mother's Labs Mother's Blood Type: positive: AB Mother's RH: positive: Negative (Declined RhoGAM after counseling.) GBS: positive: Group B Step Negative Rubella Status: positive: Immune - Other Maternal History Other Maternal History: HPI: Patient is a 33-year-old at 40 weeks 3 days gestation here for induction of labor she had some contractions after membrane sweep last week,. She has good movement. Denies loss of fluid. No RESENDEZ/BV or RUQP. No vaginal bleeding. Denies nausea and vomiting. Denies urinary urgency or dysuria. All other symptoms reviewed and were negative except per HPI. Course LMP: 06/11/23 STEVEN by LMP: 03/17/24 US: 08/07/2023 @ 8+2; STEVEN 03/16/2024 Final STEVEN: 03/17/2024 ANC c/b: 1. RH NEG [ ] rhogam @ 28w- Refused 01/05. -Declined RhoGAM at previous visit, but should reevaluate next visit to ensure she knows the risk for accidental future pregnancies. 2. family h/o T21 - in three people, on both hers and father's side. -Declined testing 3. h/o DM in both her parents - counciled on diet & precautions, did not have GDM with her son (4yo ago) - true celiacs 4. anemia in prior preg - intolerant to PO red meat, reviewed other sourced of iron 5. COVID in . Discussed third trimester monitoring. Pre- Weight:140 BMI: 22.68 Blood type: AB - NEEDS RHOHGAM after antibody screen/flowsheet- REFUSED 01/05 last baby Rh: negative Antibody: NEGATIVE CBC: PLT: 265 HCT: 39.6 HGB 13.1 RUB: 24 VZV: Immune (1545) HBsAg: Negative HepC: NR RPR/AB-EIA: NR HIV: NR PAP: 11/26/2021 Normal GC/CT: 08/30- negative HSV:Denies in self and partner Genetic testing: declines Covid: had covid around Thanksgiving Flu: declines 08/30 FAS: WNL Placenta: posterior w/o previa Cord: 3VC DAYAN: 9.2 cm normal EFW: 52.6%ile 50gm OGCT: 12/28-184 01/06- 169 3HR GTT:profiling TDAP: 01/06/2024 Breast Pump: fax Rhogam: REFUSED Antibody screen: 12/29/2023 Negative 3rd trimester PLT 246 HCT 34.8 HGB 11.6 GBS: /- negative Delivery plan: vaginal delivery. open to epidural or not, depends how it goes. Contraception: partner plans vasectomy, knows it takes 3 m to work. PMH Anxiety Endometriosis IVF Celiac disease PSH Laparoscopy x 5 OB History [G P ] SH Denies tobacco, drugs Family History Mother: Diabetes Father: Diabetes, high cholesterol maternal grandmother: Diabetes stroke Maternal grandfather: High cholesterol Paternal grandmother: Skin cancer, osteoporosis Sister: Endometriosis, thyroid disorder Brother: Thyroid disorder Allergies Wheat/barley Medications Renal vitamins Albuterol as needed Vitamin D Physical exam: General: Alert, oriented, no acute distress Head: Normal cephalic atraumatic Eyes: PERRLA, extraocular motions intact. Respiratory: Normal rate of respiration. No accessory muscle use, normal respiratory effort. Cardiovascular: Regular rate and rhythm Abdomen: Gravid, nontender, nondistended Extremities: Normal range of motion Neuro: Oriented x3. Normal movements Psych: Appropriate mood and affect. Normal judgment and insight SVE: 50/-3 FHT: 135 beats per baseline, moderate variability, accelerations present, no decelerations. [place]: Quiescent Assessment and plan 40 weeks gestation Induction of labor -Admit to L&D, admit labs, epidural at patient's request. -Patient did not tolerate exam well, so deferred amniotomy and will start oxytocin. -Counseled on risk, benefits, alternatives of induction. Celiac disease Rh- -declined RhoGAM in . Says this is her last baby. Meds/Allgy - Home Medications Home Medications: Ambulatory Orders Medication Instructions Recorded Confirmed Albuterol Sulf [Ventolin Hfa 2 puffs INH QID #1 each 09/08/23 Inhaler] Ondansetron Odt [Zofran] 4 mg TL Q6H PRN #20 tablet 09/08/23 dexAMETHasone [Decadron] 4 mg PO DAILY #5 tablet 09/08/23 - Allergies Allergies/Adverse Reactions: Allergies Allergy/AdvReac Type Severity Reaction Status Date / Time gluten Allergy Severe Unknown Verified 10/24/16 22:17 Plan for Labor - Plan For Labor I expect patient to be DC'd or transferred within 96 hours.: Yes
[2024-03-20 09:25] LABS: BASOPHILS % (AUTO) 0.3 %; EOSINOPHILS # (AUTO) 0.1 10^3/uL (0.0-0.7); HCT - HEMATOCRIT 39.6 % (37.0-47.0); HGB - HEMOGLOBIN 13.1 g/dL (12.0-16.0); LYMPHOCYTES # (AUTO) 2.1 10^3/uL (1.5-3.5); LYMPHOCYTES % (AUTO) 20.7 %; MEAN CORPUSCULAR HEMOGLOBIN 31.6 pg (27.0-31.0); MEAN CORPUSCULAR HGB CONC 33.1 g/dL (32.0-36.0); MEAN CORPUSCULAR VOLUME 95.4 fL (81.0-99.0); MEAN PLATELET VOLUME 11.1 fL (7.9-10.8); MONOCYTES # (AUTO) 0.7 10^3/uL (0.0-1.0); MONOCYTES % (AUTO) 6.8 %; NEUTROPHILS % (AUTO) 70.4 %; PLT - PLATELET COUNT 170 10^3/uL (130-450); RED BLOOD COUNT 4.15 10^6/uL (4.20-5.40); RED CELL DISTRIBUTION WIDTH 12.8 % (12.0-15.0); WHITE BLOOD COUNT 9.9 x10^3/uL (4.8-10.8)
[2024-03-20] MEDS ORDERED: ALBUTEROL NEB 2.5 MG/3 ML INH SCH (09:27)
[2024-03-20] MEDS: OXYTOCIN/SODIUM CHLORIDE 500 ML IV SCH (09:40)
[2024-03-20] MEDS: LACTATED RINGERS 1,000 ML IV SCH (09:41)
[2024-03-20] MEDS ORDERED: SODIUM CHLORIDE FLUSH 0.9% 10 ML SYRINGE IVP SCH (10:00)
[2024-03-20] MEDS ORDERED: ROPIVACAINE 0.2% 200 MG/100 ML BAG EP ONE (13:19)
[2024-03-20] MEDS ORDERED: LIDOCAINE 2%-EPI 1:100000 20 ML MDV ONE (13:19)
[2024-03-20] MEDS ORDERED: ePHEDrine 50 MG/ML VIAL IVP PRN (14:37)
[2024-03-20] MEDS ORDERED: diphenhydrAMINE INJ 50 MG/ML VIAL IVP PRN (14:37)
[2024-03-20] MEDS ORDERED: METOCLOPRAMIDE 10 MG/2 ML VIAL IVP PRN (14:37)
[2024-03-20] MEDS ORDERED: NALBUPHINE 10 MG/ML AMP IVP PRN (14:37)
[2024-03-20] MEDS ORDERED: ROPIVACAINE 0.2% 200 MG/100 ML BAG EP PRN (14:37)
[2024-03-20] MEDS ORDERED: ONDANSETRON 4 MG/2 ML VIAL IVP PRN ×2 (14:37→19:44)
[2024-03-20] MEDS ORDERED: NALOXONE 0.4 MG/ML VIAL IVP PRN (14:37)
--- NOTE | 2024-03-20 14:45 | ANESTHESIA ---
Pre-Anesthesia VS, & Labs - Diagnosis labor pain - Procedure labor epidural Vital Signs: Temp Pulse Resp BP Pulse Ox O2 Flow Rate 36.5 C 98 16 113/83 H 03/20/24 08:49 03/20/24 08:49 03/20/24 08:49 03/20/24 08:49 Height: 5 ft 6 in Weight (kg): 78.925 kg Body Mass Index: 28.0 BMI Classification: Overweight - NPO Other - Is Patient ?: Yes - Lab Results Current Lab Results: Laboratory Tests 03/20/24 08:45: WBC 9.9, RBC 4.15 L, Hgb 13.1, Hct 39.6, MCV 95.4, MCH 31.6 H, MCHC 33.1, RDW 12.8, Plt Count 170, MPV 11.1 H, Neut # (Auto) 7.0 H, Lymph # (Auto) 2.1, [place] # (Auto) 0.7, Eos # (Auto) 0.1, Baso # (Auto) 0.0, Absolute Nucleated RBC 0.00, Nucleated RBC % 0.0 03/20/24 08:45: Blood Type AB NEGATIVE, Antibody Screen NEGATIVE Fish Bones: 03/20/24 08:45 Home Medications and Allergies Active Medications Acetaminophen (Acetaminophen 500 Mg Tablet) 1,000 mg PO Q6HR PRN PRN Reason: Pain or Fever > 38C (100.4F) Albuterol (Albuterol Neb 2.5 Mg/3 Ml) 2.5 mg INH RTQ6H CRISTINA Fentanyl (Fentanyl 100 Mcg/2 Ml Vial) 50 mcg IVP Q1H PRN PRN Reason: Severe Pain (score 7-10) Hydralazine HCl (Hydralazine Inj 20 Mg/Ml Vial) 10 mg IVP .ONCE PRN; Protocol PRN Reason: SBP> or= 160 OR DBP> or= 110 Hydralazine HCl (Hydralazine Inj 20 Mg/Ml Vial) 5 - 10 mg IVP Q20M PRN; Protocol PRN Reason: SBP> or= 160 OR DBP> or= 110 Oxytocin/Sodium Chloride (Pitocin/Sodium Chloride) 500 mls @ 999 mls/hr IV PRN PRN; Protocol PRN Reason: POST- HEMORR PREVENTION Tranexamic Acid (Tranexamic 1,000 Mg/100ml-Nacl) 1,000 mg in 100 mls @ 600 mls/hr IV Q30M PRN PRN Reason: EBL >1200mL and within 3hr Lactated Ringer's (Lr) 1,000 mls @ 125 mls/hr IV .Q8H [facility] Last Admin: 03/20/24 14:10 Dose: 125 mls/hr Lactated Ringer's (Lr) 1,000 mls @ 999 mls/hr IV PRN PRN PRN Reason: PER PHYSICIAN ORDER Oxytocin/Sodium Chloride (Pitocin/Sodium Chloride) 500 mls @ 2 mls/hr IV TITR CRISTINA; Protocol Last Titration: 03/20/24 10:47 Dose: 6 milliunit/min, 6 mls/hr Labetalol HCl (Labetalol 20 Mg/4 Ml Syringe) 20 mg IVP .ONCE PRN; Protocol PRN Reason: SBP> or= 160 OR DBP> or= 110 Labetalol HCl (Labetalol 20 Mg/4 Ml Syringe) 20 - 80 mg IVP Q10M PRN; Protocol PRN Reason: SBP> or= 160 OR DBP> or= 110 Labetalol HCl (Labetalol 20 Mg/4 Ml Syringe) 20 - 40 mg IVP Q10M PRN; Protocol PRN Reason: SBP> or= 160 OR DBP> or= 110 Lidocaine HCl (Lidocaine 1% 20 Ml Mdv) 20 ml ID .ONCE PRN PRN Reason: PERINEAL REPAIR Stop: 03/23/24 09:01 Methylergonovine Maleate (Methylergonovine 0.2 Mg/Ml Vial) 0.2 mg IM .ONCE PRN PRN Reason: Hemorrhage Misoprostol (Misoprostol 200 Mcg Tablet) 600 mcg BC .ONCE PRN PRN Reason: Hemorrhage Misoprostol (Misoprostol 200 Mcg Tablet) 800 mcg NE .ONCE PRN PRN Reason: Hemorrhage Nifedipine (Nifedipine 10 Mg Capsule) 10 - 20 mg PO Q20M PRN; Protocol PRN Reason: SBP> or= 160 OR DBP> or= 110 Ondansetron HCl (Ondansetron Odt 4 Mg Tablet) 4 mg TL Q6HR PRN PRN Reason: Nausea / Vomiting Oxytocin (Oxytocin 10 Unit/Ml Vial) 10 unit IM .ONCE PRN PRN Reason: Step One if no IV access. Sodium Chloride (Sodium Chloride Flush 0.9% 10 Ml Syringe) 10 ml IVP Q8H CRISTINA Sodium Chloride (Sodium Chloride Flush 0.9% 10 Ml Syringe) 10 ml IVP PRN PRN PRN Reason: NEEDED PER PROVIDER ORDERS Terbutaline Sulfate (Terbutaline 1 Mg/Ml Vial) 0.25 mg SUBQ .ONCE PRN PRN Reason: Tachystole Allergies/Adverse Reactions: Allergies Allergy/AdvReac Type Severity Reaction Status Date / Time gluten Allergy Severe Unknown Verified 10/24/16 22:17 Anes History & Medical History - Anesthetic History Anesthesia Complications: reports: No previous complications Family history of Anesthesia Complications: Denies Family history of Malignant Hyperthermia: Denies - Medical History Cardiovascular: reports: None Pulmonary: reports: None Gastrointestinal: reports: None Urinary: reports: None Neuro: reports: None Musculoskeletal: reports: None Endocrine/Autoimmune: reports: None Blood Disorders: reports: None Skin: reports: None Smoking Status: Never smoker Psychosocial: reports: No issues indicated History of Cancer?: No Exam General: Alert, Oriented x3, Cooperative Dental: WNL Mouth Openin Fingerbreadth Neck Mobility: Normal Mallampati classification: II Thyromental Distance: 4-6 cm Respiratory: Lungs clear Cardiovascular: Regular rate Plan Anesthesia Type: Epidural Consent for Procedure(s) Verified and Reviewed: Yes Code Status: Attempt Resuscitation ASA classification: 2-Mild systemic disease Is this case an emergency?: No
[2024-03-20] MEDS ORDERED: LIDOCAINE-MPF 2% 5 ML VIAL ONE (15:01)
[2024-03-20] MEDS ORDERED: LIDOCAINE-MPF 1% 5 ML VIAL ONE ×2 (15:03)
--- NOTE | 2024-03-20 16:18 | PROVIDER PROGRESS NOTE ---
Labor Progress Note - Uterine Monitoring Uterine Monitoring Mode: positive: External toco Contraction Frequency (min/apart): 2 Contraction Intensity: positive: Strong - Monitoring Monitor Mode: positive: External ultrasound Heart Rate Baseline: 125 Heart Rate Variability: positive: Moderate (6-25 bmp) Accelerations: positive: Present, 15x15 Decelerations: positive: None - Vaginal Exam Dilation (in cm): 8 Effacement (%): 100 Station: -1 - Labor Progress Note Labor Progress Note/Additional Text: Moo regularly. More relief after epidural, although right side more numb than left. Repositioned to left side to spread dose. Feeling some pressure. Category 1 tracing. Oxytocin at 4 milliunits/min. Was decreased at time of epidural due to being off the monitor. Spontaneous rupture membranes earlier this afternoon with clear fluid. Plan to recheck in 1 hour or if patient feels more pressure.
[2024-03-20] MEDS ORDERED: SIMETHICONE CHEW 80 MG TABLET PO PRN (19:44)
[2024-03-20] MEDS ORDERED: CALCIUM CARBONATE CHEW 500 MG TABLET PO PRN (19:44)
[2024-03-20] MEDS ORDERED: LACTATED RINGERS 1,000 ML IV SCH (20:00)
--- NOTE | 2024-03-20 20:55 | DELIVERY NOTE ---
<Chanda Blanco - Last Filed: 03/20/24 20:49> Delivery Note - Labor Labor: positive: Induced by oxytocin - Delivery Method Infant Delivery Method: positive: Spontaneous vaginal delivery - Presentation Presentation: positive: Vertex, ESHA - left occiput anterior - Nuchal Cord Nuchal Cord: positive: Present - Anesthetic Anesthetic Type: - Amniotic Fluid Description Amniotic Fluid Description: positive: Clear - Episiotomy Type Episiotomy Type: positive: None - Laceration Laceration: positive: 2nd degree, Perineal - Suture Suture Type: positive: Vicryl Suture Size: positive: 2-0 - Delivery Outcome Delivery Outcome: positive: Livebirth - [place]: positive: Placed in direct skin contact with mother, Suctioned, Bulb syringe, Cathether, Stimulated, Warmed sex: positive: Female - Cord Cord: positive: 3 vessels - Placenta Placenta: positive: Intact, Spontaneous - Estimated Blood Loss Estimated Blood Loss (in cc): 400 - Post Delivery Events Post Delivery Events: positive: Shoulder dystocia - Delivery Comments (Free Text/Narrative) Delivery Comments (Free Text/Narrative): This 33 -year-old, G 3 P 1 . @ 40+3 gestation by LMP confirmed by 8+2 week ultrasound/ LMP presented @ 0800 time induction of labor and in condition. Cervix was 4/50/-3 and Vertex presentation by exam. GBS negative. FHR pattern demonstrated 140 baseline in a category I tracing prior to second stage. Normal labor course. Epidural placed upon maternal request. SROM occurred @ 1313. She then progressed to complete/complete @ 1709. Labored down then began pushing @ began at 1816. : Normal spontaneous vaginal delivery of a viable female on 03/20/2024 @ 1908. Nuchal x1, reduced. After reduction of nuchal cord. Attempted delivery of the head was unsuccessful, despite gentle traction of the head. Shoulder dystocia was announced and asked for Keri position, Superpubic pressure, and attempted rotational maneuvers and removal of posterior shoulder. After unsuccessful maneuvers, asked for Dr. García to step in. He successfully delivered the posterior shoulder. In total 90 seconds elapse for delivery of head to delivery of body including reduction of nuchal cord and resolution of shoulder dystocia. The was placed on maternal abdomen, stimulated, dried and placed skin to skin. Apgars 8 @ 1 min, and 9 @ 5 minutes. Pitocin administered via IV for hemostasis. The umbilical cord was allowed to stop pulsating at which time it was doubly clamped by delivering provider and cut by FOB. 3VC. Cord blood was obtained. Fundal massage and gently cord traction applied for active management of the third stage, placenta delivered spontaneously and intact @ 1917 time. EBL 400. Placenta was WAS NOT sent to pathology. Thirty units of Pitocin were added to the IV fluid and allowed to run freely. Uterine massage was performed until uterus was deemed firm. Inspection of the perineum noted a first-degree midline laceration largely in the area of previous scar tissue. This was repaired with a running suture of 3- 0 Vicryl. Upon re-inspection the patient was hemostatic. Uterus again massaged and found to be firm. Needle and sponge counts were correct. Fourth stage: Uterine fundus firm and there is no excessive bleeding. The perineum, vagina and cervix were inspected. Second degree perineal laceration repaired with 2-0 vicryl, in standards fashion under sterile conditions. Although the capsule appeared intact, the perineal muscles the perineal muscles were reinforced by Dr. García prior to repair of the 2nd degree repair. Vaginal and rectal examination following the repair was done. Tissues well approximated. /skin to skin initiated. Family bonding well. Both mother and baby are in stable condition. 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 <Jaspreet García - Last Filed: 03/20/24 21:09> Delivery Note - Delivery Comments (Free Text/Narrative) Delivery Comments (Free Text/Narrative): I was present and participated in the delivery of the patient with CNM student Francis. After delivery of the head, she appropriately reduced the nuchal cord, and once the shoulder dystocia was identified, she asked for Keri and suprapubic pressure and attempted internal maneuvers. This was unsuccessful, so she asked me to step in. After assessing the patient and attempting rotational manouvers, the anterior shoulder had alread been rotated out of impaction, but the large body was not deliverying with gentle traction. I attempted to remove the posterior arm, but was unable, so I was able to place my fingers under the posterior axilla and deliver the posterior shoulder with gentle traction. The rest of the body delivered thereafter and was placed on mother's chest where she was stimulated and responded well. On exam, she had movement of bilateral upper extremities. We discussed the shoulder dystocia with the family. After the delivery, I did place two stitches in the perineal muscles to reinforce them as they appeared wide, but the anal sphincter appeared intact. Jaspreet García MD
[2024-03-20] MEDS: ACETAMINOPHEN 500 MG TABLET PO SCH (23:11)
[2024-03-20] MEDS: IBUPROFEN 600 MG TABLET PO SCH (23:13)
[2024-03-21] MEDS: DOCUSATE SODIUM 100 MG CAPSULE PO PRN (08:45)
--- NOTE | 2024-03-21 10:49 | PROVIDER PROGRESS NOTE ---
Subjective - Subjective Subjective: Subjective Patient reports she is doing well. Lochia appropriate. Denies heavy bleeding. Ambulating. Pelvic and abdominal pain well-controlled. Tolerating oral intake. Diet: Regular. Voiding without difficulty. Passing flatus. Denies BM. Patient is bonding with baby in room Breast feeding going well. Denies feeling lightheaded, dizzy or excessively fatigued. Objective General: Alert, oriented, no apparent distress. Cardiovascular: Regular rate. Regular rhythm. Lungs: No increased work of breathing. Abdomen: Uterus firm. Below umbilicus. No guarding or rebound. Extremities: No pain on palpation. No cords palpated. Distal pulses intact. Assessment and Plan day 1. -Routine care -Anticipate discharge tomorrow Rh- -Patient declined RhoGAM. Objective - Vital Signs/Intake & Output Vital Signs: Vital Signs x48h Temp Pulse Resp BP 03/21/24 06:00 209.5 F H 85 18 101/56 L Intake & Output: Intake & Output 03/18/24 03/19/24 03/20/24 03/21/24 23:59 23:59 23:59 23:59 Intake Total 1795.033 Balance 1795.033 - Lab Results Fish Bones: 03/20/24 08:45
--- NOTE | 2024-03-21 11:26 | PHARMACY PROGRESS NOTE ---
- Best Possible Medication History Admit Date and Time: 03/20/24 0901 Processed by: Pharmacy Medications reviewed in ED?: Yes Medication History completed: Yes Patient Interview: Completed Secondary Source(s): Insurance records As the person ultimately responsible for medication therapy, providers are able to order a medication from an existing home medication list in [facility] via the "Reconcile Routine" prior to Confirmation of that medication by administrative support technician. Such practice is discouraged except when the physician, in their clinical judgment, deems that a medical need exists for a medication without regard to previous use.
--- NOTE | 2024-03-22 08:14 | Discharge Plan ---
Discharge Plan Problem Reviewed?: Yes Disposition: Home, Self Care Condition: Good Diet: Regular Shower Restrictions: No Instruction Topics: Vaginal After, Depression No Smoking: If you smoke, Please STOP! Call for help. Follow-up with: Jaspreet García MD [Provider Admit Priv/Credential] -
--- NOTE | 2024-03-22 08:33 | DISCHARGE SUMMARY ---
<DorisChanda dalton - Last Filed: 03/22/24 08:37> Discharge Summary Admit Date: 03/20/24 Discharge Date: 03/22/24 Discharging Provider: Dr. García Condition at Discharge: Good Discharge Disposition: 01 Home, Self Care - HOSPITAL COURSE Hospital Course: Date of Admission 03/20/2024 Date of Discharge 03/22/2024 Diagnosis on admission: 1. 33 year old at 40+3 weeks gestation 2. Induction of labor 3. RH neg- RhoGam declined 4. GBS negative Diagnosis on Discharge 1. S/P vaginal delivery with second degree perineal laceration 2. Post day 2 3. Baby blood type AB neg Brief History: She is a patient of [facility] who presented on 03/20/2024 for induction of labor. Normal labor curve and delivered with 90 second shoulder dystocia on 03/20/2024. She progressed along the normal labor curve, had effective pain management with epidural. Delivery of viable female apgars 8 and 9 at 1 and 5 minutes respectively. EBL 400 ml. 2nd degree perineal laceration with repair. She has been doing well in her course. She is ambulating and tolerating a regular diet. She is urinating and stooling without difficulty and her lochia is normal. Her pain is well controlled without narcotic management. She will be discharged to home today on day 2 with prescriptions for IBU and Colace. She intends to follow up with [facility] 1 week. She has been given precautions to call if she has any worsening fevers, chills, abdominal pain, increasing bleeding, or foul smelling vaginal lochia. - ALLERGIES Allergies/Adverse Reactions: Allergies Allergy/AdvReac Type Severity Reaction Status Date / Time gluten Allergy Severe Unknown Verified 10/24/16 22:17 - MEDICATIONS Home Medications: Ambulatory Orders Medication Instructions Recorded Confirmed Vit No.180/Iron/Folic 1 tab PO DAILY 03/21/24 03/21/24 [ Plus Vitamin-Mineral] Docusate Sodium 100Mg Capsule 100 mg PO DAILY #30 cap 03/22/24 [Colace 100Mg Capsule] Ibuprofen [Motrin] 600 mg PO Q6H PRN #30 tab 03/22/24 - PHYSICAL EXAM AT DISCHARGE General Appearance: positive: No acute distress Eyes Bilateral: positive: Normal inspection Neck: positive: Nml inspection Abdomen: positive: Non-tender Skin: positive: Color nml Neurologic/Psychiatric: positive: Oriented x3 - LABS Result Diagrams: 03/20/24 08:45 <Jaspreet García - Last Filed: 03/23/24 13:12> Discharge Summary - PHYSICAL EXAM AT DISCHARGE Physical Exam Other/Comments: Temp Pulse Resp BP Pulse Ox O2 Flow Rate 97.9 F 72 16 109/61 99 03/22/24 08:00 03/22/24 08:00 03/22/24 08:00 03/22/24 08:00 03/22/24 08:00 - LABS Result Diagrams: 03/20/24 08:45
[2024-03-22 09:21] VITALS: BP 109/61; O2SAT 99
--- NOTE | 2024-03-22 14:27 | Labor Flowsheet ---
Labor Flowsheet Datetime Report Generated by CPN: 03/22/2024 14:26 Datetime: 03/22/2024 08:19 Pulse: 72 SpO2 (%): 98 Datetime: 03/22/2024 08:18 VITAL SIGNS NBP Sys/Tere/Mean (mmHg): 109 : 61 : 73 Datetime: 03/20/2024 21:15 Stage of : Recovery Datetime: 03/20/2024 21:00 Respirations: 18 Datetime: 03/20/2024 20:27 Membranes Ruptured Date/Time: 03/20/2024 13:00 Datetime: 03/20/2024 19:30 Temperature (C): 36.5 Temperature Route: Oral PAIN Pain Scale: 0 Datetime: 03/20/2024 19:17 Communication Comments: Report received from [facility] RN Datetime: 03/20/2024 19:08 Comments: Delivery of liveborn baby girl. This RN and ROX Rajan remained at bedside, evalu ating FHT throughout entire pushing efforts. Datetime: 03/20/2024 19:05 Pattern: Normal: <= 5 Contractions in 10 Minutes FHR Baseline Rate : 135 Variability: Moderate 6-25 bpm Accelerations: None Decelerations: Early; Variable Datetime: 03/20/2024 19:04 LaborFlag: Labor Datetime: 03/20/2024 18:15 COMMUNICATION Communication: RN Reviewed Strip Datetime: 03/20/2024 18:13 VAGINAL EXAM Dilatation (cm): 10.0 Effacement (%): 100 Station: -1 Exam by: Neeraj Carcamo APRN Vaginal Bleeding: Normal Show Datetime: 03/20/2024 18:00 Frequency (min): 1.5-2.5 Duration (sec): 50-70 ASSESSMENT A Monitor Mode: Telemetry Datetime: 03/20/2024 17:30 Pitocin Checklist: At Least 1 Acceleration of 15 bpm x 15 Seconds in 30 Minutes or Adequate Variabi lity; No More than 1 Late Deceleration Occurred in Past 30 Minutes; No More than 2 Variable Decelerat ions > 60 Seconds in Duration and decreasing >60 bpm in 30 minutes; No More than 5 Uterine Contractio ns in 10 Minutes for any 20 Minute Interval; Uterus Palpates Soft between Contractions; IUPC Resting Tone less than 25 mmHg Category: Category I Datetime: 03/20/2024 17:11 Patient Position/Activity: High Fowlers Patient Care Comments: seated throne Datetime: 03/20/2024 17:09 Cervix, Consistency: Firm Vaginal Exam Comments: forebag Datetime: 03/20/2024 14:53 Cervix, Position: Anterior Datetime: 03/20/2024 14:03 Epidural Procedure: Test Dose Datetime: 03/20/2024 14:00 Contraction Comments: unable to determine Datetime: 03/20/2024 13:44 Medication Comments: Patient off monitor for >10 minutes Datetime: 03/20/2024 13:33 PROCEDURE TIME OUT Procedure Verify: Correct Patient Identity; Correct Side and Site are Marked; Accurate Procedure Co nsent Form; Agreement on Procedure to be Done; Correct Patient Position; Relevant Images and Results are Properly Labeled and Displayed; Addressed Need to Administer Antibiotics or Fluids for Irrigation ; Safety Precautions Based on Patient History or Medication Use ANESTHESIA Anesthesia Plans: Epidural Epidural Positioning: Sitting Anesthesia Comments: Howie Mendosa CRNA at bedside Datetime: 03/20/2024 13:13 Membrane Status: Ruptured Membranes Rupture Method: Spontaneous Amniotic Fluid Color: Clear Amniotic Fluid Amount: Small Amniotic Fluid Odor: None Datetime: 03/20/2024 13:00 FHR Baseline Changes: No Baseline Change Datetime: 03/20/2024 12:30 UTERINE ACTIVITY Monitor Mode: External Quality: Moderate Resting Tone (Palpate): Relaxed Datetime: 03/20/2024 10:11 MEDICATIONS Pitocin (milliunits): Increased to @ 4 Datetime: 03/20/2024 08:44 PATIENT CARE IV/Blood Work: Labs Drawn with IV Start
== END 2024-03-22 13:30 | disposition home or self-care (01) | DRG 807 ==
LOC: FBP 08:07 → WFO 08:07 → FBP 09:01
PROVIDERS: ADMIT Obstetrics & Gynecology; ATTEND Obstetrics & Gynecology
PROC: 10E0XZZ Delivery of Products of Conception, External Approach (ICD-10-PCS; principal; 2024-03-20)
PROC: 0KQM0ZZ Repair Perineum Muscle, Open Approach (ICD-10-PCS; 2024-03-20)
PROC: 3E033VJ Introduction of Other Hormone into Peripheral Vein, Percutaneous Approach (ICD-10-PCS; 2024-03-20)
DX: O70.1 Second degree perineal laceration during delivery (principal); Z37.0 Single live birth; Z3A.40 40 weeks gestation of pregnancy; O66.0 Obstructed labor due to shoulder dystocia; O48.0 Post-term pregnancy; Z53.20 Procedure and treatment not carried out because of patient's decision for unspecified reasons; O69.81X0 Labor and delivery complicated by cord around neck, without compression, not applicable or unspecified
CPT/HCPCS: 36415; 59409; 85025; 86850; 86900; 86901; A9270; J7120